=== PATIENT | male | born 1990 | race Caucasian/White ===

== ENCOUNTER 2019-02-08 22:45 | Emergency (ER) | payer SELFPAY ==
[~2019-02-08] VITALS: Ht 170.2 cm; Wt 75.7 kg
[2019-02-08 22:51] VITALS: Ht 170.2 cm; Wt 75.7 kg
[2019-02-09] MEDS ORDERED: LORA1TAB PO (02:10)
--- NOTE | 2019-02-09 02:11 | ERD ---
ER Documentation Chief Complaint Chief Complaint ANXIETY S/P METH USE SINCE YESTERDAY, C/O PALPITATIONS HPI This is a 28-year-old male who is here because he needs something for anxiety. The patient's been smoking meth off-and-on for the past 2 days. Is also had some alcohol. He states that he is having some palpitations and no chest pain, and just needs something to "calm down". ROS All systems reviewed and are negative except as per history of present illness. Medications Home Meds Active Scripts Lorazepam* (Lorazepam*) 1 Mg Tablet, 1 MG PO Q8H PRN for ANXIETY, #10 TAB Prov:KAYLA DUVALL DO 02/09/19 PMhx/Soc Medical and Surgical Hx: pt denies Medical Hx, pt denies Surgical Hx Hx Alcohol Use: No Hx Substance Use: Yes (methamphetamines ) Hx Tobacco Use: No Smoking Status: Never smoker FmHx Family History: No coronary disease Physical Exam Vitals Vital Signs Date Temp Pulse Resp B/P (MAP) Pulse Ox O2 O2 Flow FiO2 Time Delivery Rate 02/09/19 98.6 99 20 133/58 98 Room Air 01:58 (83) 02/08/19 100.0 121 20 157/98 98 22:51 (117) Physical Exam Const: Well-developed, well-nourished Head: Atraumatic, normocephalic Eyes: Normal Conjunctiva, PERRLA, EOMI, normal sclera, no nystagmus ENT: Normal External Ears, Nose and Mouth, moist mucus membranes. Neck: Full range of motion. No meningismus, no lymphadenopathy. Resp: Clear to auscultation bilaterally, no wheezing, rhonchi, rales Cardio: Regular rate and rhythm, no murmurs, S1 S2 present Abd: Soft, non tender x 4, non distended. Normal bowel sounds, no guarding or rebound, no pulsitile abdominal masses or bruits Skin: No petechiae or rashes, no ecchymosis , no maculopapular rash Back: No midline or flank tenderness Ext: No cyanosis, or edema, FROM x 4, normal inspection, neurovascula rly intact x 4 Neur: Awake and alert, STR 5/5 x 4, sensation intact x 4, no focal findings, cerebellum intact Psych: Normal Mood and Affect Procedures/MDM 2 mg of Ativan p.o. Departure Diagnosis: Primary Impression: Anxiety Condition: Stable Patient Instructions: Anxiety Reaction Referrals: NO PRIMARY,CARE PHYSICIAN (PCP) KAYLA DUVALL DO February 09, 2019 02:11
[2019-02-09 02:19] VITALS: BP 130/81; PULSE 87; RESP 20
[2019-02-09] MEDS ORDERED: LORAZEPAM 1 MG TAB PO ONE (02:30)
== END 2019-02-09 03:00 | disposition home or self-care (01) ==
LOC: E/R 22:45
DX: F41.9 Anxiety disorder, unspecified (principal)
CPT/HCPCS: 99283